=== PATIENT | female | born 1940 | race Caucasian/White ===

== ENCOUNTER 2017-05-13 12:43 | Emergency (ER) | payer MEDICARE, MEDICAID ==
[~2017-05-13] VITALS: Ht 160 cm; Wt 77.1 kg
[2017-05-13] MEDS ORDERED: OMEPRAZOLE 20 M20 M1 PO (13:02)
[2017-05-13] MEDS ORDERED: PROZAC20 MG PO (13:03)
[2017-05-13] MEDS ORDERED: LIPITOR 20 MG T20 M1 PO (13:03)
[2017-05-13] MEDS ORDERED: ATENOLOL 50MG T50 M1 PO (13:03)
[2017-05-13] MEDS ORDERED: NORVASC5 MG PO (13:03)
[2017-05-13] MEDS ORDERED: VENTOLIN HFA 1818 GM INH (13:03)
[2017-05-13] MEDS ORDERED: AMITRIPTYLINE H75 M1 PO (13:03)
[2017-05-13] MEDS ORDERED: SYMBICORT80 MCG/4.1 INH (13:04)
[2017-05-13] MEDS ORDERED: MAGOX 400400 MG PO (13:04)
[2017-05-13] MEDS ORDERED: FOSAMAX 70 MG T70 MG PO (13:05)
[2017-05-13] MEDS ORDERED: PREDNISONE 10 M10 MG PO (14:28)
[2017-05-13] MEDS ORDERED: CYCLOBENZAPRINE5 MG PO (14:28)
[2017-05-13 14:37] VITALS: BP 147/75
== END 2017-05-13 14:37 | disposition home or self-care (01) ==
LOC: M.ERS 12:43
DX: M17.12 Unilateral primary osteoarthritis, left knee (principal); M54.5 Low back pain; F32.9 Major depressive disorder, single episode, unspecified; R51 Headache; F10.21 Alcohol dependence, in remission; Z87.891 Personal history of nicotine dependence